=== PATIENT | male | born 1965 | race Caucasian/White ===

== ENCOUNTER 2024-06-11 00:50 | Emergency (ER) | payer MEDICARE, MEDICAID ==
[~2024-06-11] VITALS: Ht 170.2 cm; Wt 79.5 kg
[2024-06-11 00:55] VITALS: BP 155/84; PULSE 97; O2SAT 99
[2024-06-11 01:47] VITALS: RESP 18
[2024-06-11] MEDS: sulfamethoxazole/trimethoprim DS (800/160mg) tablet PO ONE (01:47)
[2024-06-11] MEDS: HYDROcodone/acetaminophen 5mg/325mg tablet PO ONE (01:47)
[2024-06-11] MEDS ORDERED: HYDR-3965 PO (01:54)
[2024-06-11] MEDS ORDERED: SULF1TAB49 PO (01:54)
[2024-06-11 01:56] VITALS: TEMP 98.9
== END 2024-06-11 02:00 | disposition home or self-care (01) ==
LOC: ER 00:51
DX: L02.414 Cutaneous abscess of left upper limb (principal); Z88.0 Allergy status to penicillin; Z91.041 Radiographic dye allergy status
CPT/HCPCS: 99283; A6258; A6402; A6449

== ENCOUNTER 2024-06-17 18:47 | Emergency (ER) | payer MEDICARE, MEDICAID ==
[~2024-06-17] VITALS: Ht 170.2 cm; Wt 81.8 kg
[~2024-06-17 18:47] MED LIST: HYDR-3965 PO; SULF1TAB49 PO
[2024-06-17 19:31] VITALS: BP 120/58; PULSE 88; RESP 16; TEMP 97.8; O2SAT 98
== END 2024-06-17 20:33 | disposition left against medical advice (07) ==
LOC: ER 18:48
DX: L98.8 Other specified disorders of the skin and subcutaneous tissue (principal); R07.81 Pleurodynia; Z53.21 Procedure and treatment not carried out due to patient leaving prior to being seen by health care provider; Z88.1 Allergy status to other antibiotic agents; Z91.041 Radiographic dye allergy status; W08.XXXA Fall from other furniture, initial encounter; Y93.89 Activity, other specified; Y92.89 Other specified places as the place of occurrence of the external cause; Y99.8 Other external cause status

== ENCOUNTER 2024-06-18 16:39 | Emergency (ER) | payer MEDICARE, MEDICAID ==
[~2024-06-18] VITALS: Ht 170.2 cm; Wt 78.1 kg
[2024-06-18] MEDS: LIDOcaine 1% 30ml preserv. free vial IJ ONE (20:36)
[2024-06-18 20:52] VITALS: BP 137/89; PULSE 90; RESP 16; TEMP 97.7; O2SAT 99
== END 2024-06-18 20:54 | disposition home or self-care (01) ==
LOC: ER 16:40
DX: L02.433 Carbuncle of right upper limb (principal); M25.511 Pain in right shoulder; R07.89 Other chest pain; Z88.1 Allergy status to other antibiotic agents; Z79.899 Other long term (current) drug therapy
CPT/HCPCS: 10060; 71045; 73030; 99284; A6258; A6266; A6402; Z7610; A6449